=== PATIENT | female | born 1965 | race African-American/Black ===

== ENCOUNTER 2021-07-12 01:01 | Inpatient (IN) | payer OTHER ==
[~2021-07-12] VITALS: Ht 167.6 cm; Wt 81.7 kg
[2021-07-12] VITALS (36 sets, daily range): BP systolic 89–126; BP diastolic 45–76
[2021-07-12] MEDS ORDERED: LEVETIRACETAM 500MG PREMIX 100 ML IV ONE (01:30)
[2021-07-12 01:43] LABS: BASOPHILS % 0.9 % (0.0-2.0); EOSINOPHILS % 8.3 % (0.0-5.0); HEMOGLOBIN. 10.7 g/dL (12.0-16.0); MEAN CORPUSCULAR HEMOGLOBIN 26.2 pg (28.0-32.0); MEAN CORPUSCULAR VOLUME 83.7 fL (81.0-99.0); NEUTROPHILS % 68.8 % (40.0-76.0); PLATELET 255 x1000/uL (130-400); RED BLOOD CELL COUNT 4.07 mill/uL (4.2-5.4); RED CELL DISTRIBUTION WIDTH 21.9 % (11.6-14.6)
[2021-07-12 01:58] LABS: CHLORIDE 105 mEq/L (98-107)
[2021-07-12 02:02] LABS: ETHANOL BLOOD < 10 mg/dL
[2021-07-12] MEDS ORDERED: LACTULOSE 20G/30ML UDC PO SCH (02:45)
[2021-07-12] MEDS ORDERED: DEXAMETHASONE 10 MG/ML VIAL IV ONE (04:15)
[2021-07-12] MEDS ORDERED: ASPIRIN 325MG EC TABLET PO ONE (04:15)
[2021-07-12 05:13] LABS: CLARITY URINE CLEAR (CLEAR); COLOR URINE YELLOW (YELLOW); KETONES URINE NEGATIVE (NEGATIVE); LEUKOCYTE ESTERASE URINE TRACE (NEGATIVE); NITRITE URINE NEGATIVE (NEGATIVE); OCCULT BLOOD URINE NEGATIVE (NEGATIVE); PH URINE 7.5 (4.5-8.0); PROTEIN URINE NEGATIVE (NEGATIVE); SPECIFIC GRAVITY URINE 1.005 (1.005-1.030)
[2021-07-12] MEDS ORDERED: DEXAMETHASONE 10 MG/ML VIAL IV SCH (05:15)
[2021-07-12 05:37] LABS: *AMPHETAMINES SCREEN URINE NEGATIVE (NEGATIVE); *BARBITURATES SCREEN URINE NEGATIVE (NEGATIVE); *BENZODIAZEPINES SCREEN URINE PRESUMTIVE POSITIVE (NEGATIVE); *COCAINE SCREEN URINE NEGATIVE (NEGATIVE); CANNABINOID URINE SCREEN NEGATIVE (NEGATIVE); METHADONE URINE SCREEN NEGATIVE (NEGATIVE); OPIATES URINE SCREEN NEGATIVE (NEGATIVE); PHENCYCLIDINE URINE SCREEN NEGATIVE (NEGATIVE)
[2021-07-12] MEDS ORDERED: NICARDIPINE 100 MG in SODIUM CHLORIDE 0.9% 60 ML IV PRN (08:00)
[2021-07-12] MEDS ORDERED: LEVETIRACETAM 500 MG in SODIUM CHLORIDE 0.9% 100 ML IV SCH (09:00)
[2021-07-12] MEDS: LEVETIRACETAM 500MG PREMIX 100 ML IV SCH ×2 (09:09→21:29)
[2021-07-12] MEDS ORDERED: KETOROLAC 30MG/ML VIAL IV PRN (10:45)
[2021-07-12] MEDS ORDERED: NITROGLYCERIN 0.4MG TABLET SL SL PRN (10:45)
[2021-07-12] MEDS ORDERED: IPRATROPIUM/ALBUTEROL 0.5-3(2.5)MG/3ML NEB NEB PRN (10:45)
[2021-07-12] MEDS ORDERED: LORAZEPAM 2MG/ML CPJ IV PRN (10:45)
[2021-07-12] MEDS ORDERED: ZOLPIDEM TARTRATE 5MG TABLET PO PRN (10:45)
[2021-07-12] MEDS ORDERED: MAGNESIUM/ALUMINUM HYDROXIDE/SIMETHICONE 30ML UDC PO PRN (10:45)
[2021-07-12] MEDS ORDERED: CLONIDINE 0.1MG TABLET PO PRN (10:45)
[2021-07-12] MEDS ORDERED: GUAIFENESIN 200MG/10ML SUGAR FREE UDC PO PRN (10:45)
[2021-07-12] MEDS ORDERED: ONDANSETRON HCL 4MG/2ML INJ IV PRN (10:45)
[2021-07-12] MEDS ORDERED: DOCUSATE SODIUM 100MG CAPSULE PO PRN (10:45)
[2021-07-12] MEDS ORDERED: ACETAMINOPHEN 325MG TABLET PO PRN ×2 (10:45)
[2021-07-12] MEDS ORDERED: KETOROLAC 15MG/ML VIAL IV PRN (10:50)
[2021-07-12] MEDS: DEXT 5%/LACTATED RINGERS 1,000 ML IV SCH (11:07)
[2021-07-12] MEDS: DEXAMETHASONE 4MG/ML 1ML VIAL IV SCH ×2 (11:11→17:53)
[2021-07-12] MEDS: ENOXAPARIN 40MG/0.4ML SYR SUBCUT SCH (11:11)
[2021-07-12 11:30] LABS: FOLIC ACID (FOLATE) SERUM 11.7 ng/mL (>5.38)
[2021-07-12] MEDS ORDERED: GADOTERATE MEGLUMINE 5 MMOL/10 ML VIAL IV ONE (13:16)
[2021-07-13] VITALS (46 sets, daily range): BP systolic 84–129; BP diastolic 32–80
[2021-07-13] MEDS: DEXAMETHASONE 4MG/ML 1ML VIAL IV SCH ×5 (00:17→23:54)
[2021-07-13] MEDS: DEXT 5%/LACTATED RINGERS 1,000 ML IV SCH (02:52)
[2021-07-13 05:30] LABS: BASOPHILS % 0.1 % (0.0-2.0); HEMATOCRIT. 31.9 % (36.0-48.0); HEMOGLOBIN. 10.3 g/dL (12.0-16.0); LYMPHOCYTES % 33.6 % (20.0-50.0); MEAN CORPUSCULAR HEMOGLOBIN 26.2 pg (28.0-32.0); MEAN CORPUSCULAR VOLUME 81.1 fL (81.0-99.0); MEAN PLATELET VOLUME 7.1 fl (7.4-10.4); MONOCYTES % 0.4 % (2.0-8.0); NEUTROPHILS % 65.9 % (40.0-76.0); PLATELET 211 x1000/uL (130-400); RED BLOOD CELL COUNT 3.93 mill/uL (4.2-5.4); RED CELL DISTRIBUTION WIDTH 21.1 % (11.6-14.6)
[2021-07-13 05:51] LABS: PHOSPHORUS 3.4 mg/dL (2.5-4.9)
[2021-07-13] MEDS: LEVETIRACETAM 500MG PREMIX 100 ML IV SCH (08:49)
[2021-07-13] MEDS: PANTOPRAZOLE SODIUM 40 MG/VIAL IV SCH (08:50)
[2021-07-13] MEDS: ENOXAPARIN 40MG/0.4ML SYR SUBCUT SCH (11:27)
[2021-07-13] MEDS ORDERED: PHENYTOIN SODIUM 500 MG in SODIUM CHLORIDE 0.9% 50 ML IV NR (18:30)
[2021-07-13] MEDS: LEVETIRACETAM 500MG/5ML CUP PO SCH (21:18)
[2021-07-13] MEDS ORDERED: SODIUM CHLORIDE 0.9% 1,000 ML IV ONE (22:15)
[2021-07-13] MEDS: PHENYTOIN SODIUM 100MG/2ML VIAL IV SCH (23:54)
[2021-07-14] VITALS (25 sets, daily range): BP systolic 85–139; BP diastolic 55–95
[2021-07-14] MEDS: SODIUM CHLORIDE 0.9% 1,000 ML IV SCH ×3 (02:47→21:33)
[2021-07-14] MEDS: PHENYTOIN SODIUM 100MG/2ML VIAL IV SCH ×3 (06:21→21:32)
[2021-07-14] MEDS: DEXAMETHASONE 4MG/ML 1ML VIAL IV SCH ×4 (06:21→23:08)
[2021-07-14] MEDS: LEVETIRACETAM 500MG/5ML CUP PO SCH ×2 (08:04→21:32)
[2021-07-14] MEDS: PANTOPRAZOLE SODIUM 40 MG/VIAL IV SCH (08:04)
[2021-07-14] MEDS: ENOXAPARIN 40MG/0.4ML SYR SUBCUT SCH (11:06)
[2021-07-15] VITALS: BP 114/69
[2021-07-15 04:00] VITALS: BP 115/71
[2021-07-15] MEDS: DEXAMETHASONE 4MG/ML 1ML VIAL IV SCH ×2 (05:19→12:40)
[2021-07-15] MEDS: PHENYTOIN SODIUM 100MG/2ML VIAL IV SCH (05:19)
[2021-07-15 08:00] VITALS: BP 112/60
[2021-07-15] MEDS: LEVETIRACETAM 500MG/5ML CUP PO SCH (09:49)
[2021-07-15] MEDS: PANTOPRAZOLE SODIUM 40 MG/VIAL IV SCH (09:49)
[2021-07-15] MEDS ORDERED: KEPP500 MT (10:55)
[2021-07-15] MEDS ORDERED: LEVE1000 MT (10:55)
[2021-07-15] MEDS ORDERED: PHEN-434 MT (10:55)
[2021-07-15] MEDS: ENOXAPARIN 40MG/0.4ML SYR SUBCUT SCH (11:46)
[2021-07-15 11:58] VITALS: BP 124/70
[2021-07-15 12:00] VITALS: BP 109/50
== END 2021-07-15 15:30 | disposition home or self-care (01) | DRG 52 ==
LOC: ER 01:01 → MICUSO 04:10 → 7EST 07-14 11:50
PROVIDERS: ADMIT Internal Medicine; ATTEND Internal Medicine
DX: G92.8 Other toxic encephalopathy (principal); E43 Unspecified severe protein-calorie malnutrition; C50.919 Malignant neoplasm of unspecified site of unspecified female breast; C78.00 Secondary malignant neoplasm of unspecified lung; C79.31 Secondary malignant neoplasm of brain; D63.8 Anemia in other chronic diseases classified elsewhere; D72.819 Decreased white blood cell count, unspecified; R56.9 Unspecified convulsions; Z88.4 Allergy status to anesthetic agent; Z68.29 Body mass index [BMI] 29.0-29.9, adult
CPT/HCPCS: 36415; 70553; 71045; 80053; 80061; 80185; 80305; 80320; 81003; 82140; 82607; 82746; 83036; 83540; 83550; 83605; 83735; 84100; 84443; 84484; 85025; 93970; 97162; 97165; 99291; A9577; C9113; J1100; J1165; J1650; J1953; J7030; J7050; J7121; G0480

== ENCOUNTER 2021-08-18 08:49 | Inpatient (IN) | payer MEDICAID, OTHER ==
[~2021-08-18] VITALS: Ht 167.6 cm; Wt 74.5 kg
[~2021-08-18 08:49] MED LIST: KEPP500 MT; LEVE1000 MT; PHEN-434 MT
[2021-08-18] MEDS ORDERED: LEVETIRACETAM 1000MG PREMIX 100 ML IV ONE (09:15)
[2021-08-18] MEDS ORDERED: SODIUM CHLORIDE 0.9% 1,000 ML IV ONE (09:15)
[2021-08-18] MEDS ORDERED: MEMA10TA55 PO (09:52)
[2021-08-18] MEDS ORDERED: METO25TA6 PO (09:54)
[2021-08-18] MEDS ORDERED: OLAN5TAB74 PO (09:54)
[2021-08-18] MEDS ORDERED: DEXA1TAB PO (09:55)
[2021-08-18] MEDS ORDERED: DEXAMETHASONE 10 MG/ML VIAL IV NR ×2 (10:45→13:30)
[2021-08-18 11:31] LABS: BASOPHILS % 0.8 % (0.0-2.0); HEMATOCRIT. 33.6 % (36.0-48.0); HEMOGLOBIN. 10.4 g/dL (12.0-16.0); LYMPHOCYTES % 7.7 % (20.0-50.0); MONOCYTES % 11.8 % (2.0-8.0); NEUTROPHILS % 78.7 % (40.0-76.0); PLATELET 382 x1000/uL (130-400); RED CELL DISTRIBUTION WIDTH 19.8 % (11.6-14.6)
[2021-08-18 11:45] LABS: CHLORIDE 106 mEq/L (98-107)
[2021-08-18] MEDS ORDERED: LEVETIRACETAM 1000MG PREMIX 100 ML IV NR ×3 (11:45→18:30)
[2021-08-18 11:53] LABS: ETHANOL BLOOD < 10 mg/dL
[2021-08-18 12:19] LABS: CLARITY URINE CLOUDY (CLEAR); COLOR URINE YELLOW (YELLOW); KETONES URINE NEGATIVE (NEGATIVE); LEUKOCYTE ESTERASE URINE NEGATIVE (NEGATIVE); NITRITE URINE NEGATIVE (NEGATIVE); OCCULT BLOOD URINE NEGATIVE (NEGATIVE); PH URINE 8.5 (4.5-8.0); PROTEIN URINE 1+ (NEGATIVE); SPECIFIC GRAVITY URINE 1.015 (1.005-1.030)
[2021-08-18 12:42] LABS: *AMPHETAMINES SCREEN URINE NEGATIVE (NEGATIVE); *BARBITURATES SCREEN URINE NEGATIVE (NEGATIVE); *BENZODIAZEPINES SCREEN URINE NEGATIVE (NEGATIVE); *COCAINE SCREEN URINE NEGATIVE (NEGATIVE); CANNABINOID URINE SCREEN NEGATIVE (NEGATIVE); METHADONE URINE SCREEN NEGATIVE (NEGATIVE); OPIATES URINE SCREEN NEGATIVE (NEGATIVE); PHENCYCLIDINE URINE SCREEN NEGATIVE (NEGATIVE)
[2021-08-18] MEDS ORDERED: HYDROCODONE/ACETAMINOPHEN 5/325MG TABLET PO ONE (18:15)
[2021-08-18] MEDS ORDERED: LEVETIRACETAM 500MG PREMIX 100 ML IV SCH (22:45)
[2021-08-18] MEDS ORDERED: IPRATROPIUM/ALBUTEROL 0.5-3(2.5)MG/3ML NEB HHN PRN (22:45)
[2021-08-18] MEDS ORDERED: DEXT 5%/0.45% NACL KCL 20MEQ/L 1,000 ML IV SCH (22:45)
[2021-08-18] MEDS ORDERED: ACETAMINOPHEN 325MG TABLET PO PRN (22:45)
[2021-08-18] MEDS ORDERED: LORAZEPAM 0.5MG TABLET PO PRN (22:45)
[2021-08-18] MEDS ORDERED: ONDANSETRON HCL 4MG/2ML INJ IV PRN (22:45)
[2021-08-18 22:59] VITALS: BP 124/78
[2021-08-19] VITALS (12 sets, daily range): BP systolic 111–138; BP diastolic 69–86
[2021-08-19] MEDS: DEXT 5%/0.45% NACL KCL 20MEQ/L 1,000 ML IV SCH ×3 (00:19→15:33)
[2021-08-19] MEDS: DEXAMETHASONE 4MG/ML 1ML VIAL IV SCH ×5 (00:19→23:11)
[2021-08-19] MEDS: LEVETIRACETAM 500MG PREMIX 100 ML IV SCH ×2 (05:32→18:13)
[2021-08-19 06:19] LABS: BASOPHILS % 0.2 % (0.0-2.0); HEMATOCRIT. 35.8 % (36.0-48.0); HEMOGLOBIN. 11.4 g/dL (12.0-16.0); LYMPHOCYTES % 12.6 % (20.0-50.0); MEAN CORPUSCULAR HEMOGLOBIN 26.3 pg (28.0-32.0); MEAN CORPUSCULAR VOLUME 82.3 fL (81.0-99.0); MEAN PLATELET VOLUME 7.5 fl (7.4-10.4); MONOCYTES % 2.4 % (2.0-8.0); NEUTROPHILS % 84.8 % (40.0-76.0); PLATELET 408 x1000/uL (130-400); RED BLOOD CELL COUNT 4.35 mill/uL (4.2-5.4); RED CELL DISTRIBUTION WIDTH 19.6 % (11.6-14.6)
[2021-08-19 06:23] LABS: CHLORIDE 107 mEq/L (98-107)
[2021-08-19] MEDS: FAMOTIDINE 20MG/2ML VIAL IV SCH ×2 (09:35→21:40)
[2021-08-19] MEDS ORDERED: GADOTERATE MEGLUMINE 5 MMOL/10 ML VIAL IV ONE (09:55)
[2021-08-19] MEDS: LAMOTRIGINE 25MG TABLET PO SCH (21:40)
[2021-08-19] MEDS: LEVETIRACETAM 1,500 MG in SODIUM CHLORIDE 0.9% 100 ML IV SCH (21:42)
[2021-08-20] VITALS (8 sets, daily range): BP systolic 100–126; BP diastolic 55–82
[2021-08-20] MEDS: DEXAMETHASONE 4MG/ML 1ML VIAL IV SCH ×2 (05:07→12:11)
[2021-08-20] MEDS: FAMOTIDINE 20MG/2ML VIAL IV SCH (08:47)
[2021-08-20] MEDS: LAMOTRIGINE 25MG TABLET PO SCH (08:47)
[2021-08-20] MEDS: LEVETIRACETAM 1,500 MG in SODIUM CHLORIDE 0.9% 100 ML IV SCH (08:47)
[2021-08-20] MEDS ORDERED: KEPP500 MT (11:25)
[2021-08-20] MEDS ORDERED: FAMOTIDINE 20MG TABLET PO SCH (21:00)
[2021-08-20] MEDS ORDERED: LEVETIRACETAM 500MG TABLET PO SCH (21:00)
== END 2021-08-20 14:25 | disposition home or self-care (01) | DRG 53 ==
LOC: ER 08:49 → EDBEDREQTM 09:52 → EDBEDREQ 10:15 → EDBEDREQSVC 10:15 → EDBEDREQTM 10:15 → CANBEDREQ 17:07 → 5EST 18:29 → ENRESERV 19:39 → 5EST 23:52
PROVIDERS: ADMIT Internal Medicine Pulmonary Disease; ATTEND Internal Medicine Pulmonary Disease
DX: G40.909 Epilepsy, unspecified, not intractable, without status epilepticus (principal); E43 Unspecified severe protein-calorie malnutrition; C79.31 Secondary malignant neoplasm of brain; Z20.822 Contact with and (suspected) exposure to COVID-19; D64.9 Anemia, unspecified; Z85.118 Personal history of other malignant neoplasm of bronchus and lung; Z85.3 Personal history of malignant neoplasm of breast; Z88.8 Allergy status to other drugs, medicaments and biological substances; Z68.26 Body mass index [BMI] 26.0-26.9, adult; Z90.12 Acquired absence of left breast and nipple
CPT/HCPCS: 36415; 70553; 71045; 80048; 80053; 80305; 80320; 81003; 84484; 85025; 87426; 93005; 97161; 99291; A9577; J1100; J1953; J3490; J7030; J7050; G0480